=== PATIENT | female | born 1970 | race Caucasian/White ===

== ENCOUNTER 2025-06-26 14:37 | Outpatient (CLI) | payer OTHER, SELFPAY ==
--- NOTE | ~2025-06-26 | US_ITS ---
EXAMINATION: US carotid duplex BI DATE: 06/26/2025 15:05 INDICATION: Essential primary hypertension TECHNIQUE: Grayscale, color Doppler, and pulsed Doppler images of the cervical carotid arteries were obtained. The degree of vessel stenosis is placed in one of the following categories: normal, <50%, 50-69%, >=70% but less than near- occlusion, near-occlusion, or total occlusion. Note that percent stenosis relative to normal distal artery lumen diameter is indirectly measured from velocity measurements as described by Axel, et al. Radiology 2003; 229:340-346. COMPARISON: None. FINDINGS: RIGHT: The right common carotid artery (CCA) peak systolic velocity (PSV) is 81 cm/s. The right internal carotid artery (ICA) PSV is 79 cm/s. The right ICA end- diastolic velocity (EDV) is 38 cm/s. The right ICA/CCA PSV ratio is 1.0. Grayscale and color Doppler images yield an estimate of <50% diameter reduction from plaque in the ICA. The external carotid artery (ECA) PSV is 45 cm/s. There is antegrade flow in the right vertebral artery. LEFT: The left CCA PSV is 76 cm/s. The left ICA PSV is 85 cm/s. The left ICA EDV is 36 cm/s. The left ICA/CCA PSV ratio is 1.1. Grayscale and color Doppler images yield an estimate of <50% diameter reduction from plaque in the ICA. The ECA PSV is 76 cm/s. There is antegrade flow in the left vertebral artery. IMPRESSION: 1. <50% stenosis in the right internal carotid artery. 2. <50% stenosis in the left internal carotid artery. Reviewed, dictated and finalized at location A. [employer] ACCOUNTING CLERK
== END 2025-06-26 14:38 | disposition home or self-care (01) ==
LOC: MICIMG 14:38
PROVIDERS: PCP Family Medicine; Visit Provider Physician Assistant Medical
DX: R42 Dizziness and giddiness (principal); I10 Essential (primary) hypertension; I65.23 Occlusion and stenosis of bilateral carotid arteries
CPT/HCPCS: 93880

== ENCOUNTER 2025-08-02 10:14 | Outpatient (CLI) | payer OTHER, SELFPAY ==
--- NOTE | ~2025-08-02 | DEXA_ITS ---
Bone Density Report Name: CHRISTIANO AYON Age: 55 Sex: Female Ethnicity: White Date of : 1970 Indication: postmenopausal; screening for osteoporosis; history of glucocorticoids; asthma or emphysema; hysterectomy; Referring Provider: Monika Sue Study: Bone densitometry was performed. Exam Date: August 02, 2025 Accession number: [id number] Bone Density: Region BMD T-score Z-score Classification AP Spine(L1-L4) 1.078 0.3 1.5 Normal Femoral Neck (Left) 0.864 0.1 1.3 Normal Total Hip (Left) 1.069 1.0 1.9 Normal Femoral Neck (Right) 0.913 0.6 1.7 Normal Total Hip (Right) 1.084 1.2 2.0 Normal Total Hip Mean 1.076 1.1 2.0 Normal World Health Organization criteria for BMD impression classify patients as: Normal (T-score at or above -1.0), Osteopenia (T-score between -1.0 and -2.5), or Osteoporosis (T-score at or below -2.5). 10-year Fracture Risk: FRAX not reported because: All T-scores for Spine Total, Hip Total, Femoral Neck at or above -1.0 Clinical Information Provided by Patient: Has taken Glucocorticoids Has used the following medications: Vitamin D, Calcium Has the following medical conditions: Asthma or Emphysema, Hysterectomy Patient maximum height was 65 Menopause Age: 45 No regular weight bearing exercise Drinks caffeinated beverages Onset of menses at age 10 Number of children 2 Impression: The patient has normal bone mass. The patient has risk factors, including: history of glucocorticoid therapy. Discussion: BONE DENSITY IS ABOVE THE MINIMUM DESIRABLE LEVEL AT ALL SKELETAL SITES TESTED. This patient?s bone mineral density is above the minimum desirable level (T-score -1.0 or better) at all sites measured. The patient should follow a healthful lifestyle (good nutrition with adequate calcium and vitamin D, and appropriate weight-bearing exercise). Follow-Up: Consider repeating this study in 5 years or sooner if there is some new clinical indication. Reported by: JOSÉ MANUEL on 08/02/2025 10:31:00 AM. Reviewed, dictated and finalized at location A.
== END 2025-08-02 10:15 | disposition home or self-care (01) ==
LOC: MICIMG 10:15
PROVIDERS: PCP Family Medicine; Visit Provider Physician Assistant Medical
DX: Z78.0 Asymptomatic menopausal state (principal)
CPT/HCPCS: 77080